=== PATIENT | male | born 1940 | race Caucasian/White ===

== ENCOUNTER 2017-04-05 00:04 | Inpatient (IN) | payer OTHER ==
[~2017-04-05] VITALS: Ht 180.3 cm; Wt 95.9 kg
[2017-04-05 01:14] LABS: HEMATOCRIT 33.8 % (38.0-50.0); MCH 28.5 PG (29.0-34.0); MCHC 32.8 G/DL (30.0-36.0); MCV 86.7 FL (86-99); MEAN PLAT.VOLUME 9.9 uM^3 (9.0-12.4); PLATELET COUNT 171 K/uL (156-360); RBC DIS.WIDTH-CV 13.6 % (11.8-14.6); RBC DIS.WIDTH-SD 42.6 % (39-53); WHITE BLOOD COUNT 4.2 K/uL (4.1-10.2)
[2017-04-05 01:26] LABS: CHLORIDE 102 mEq/L (99-109); POTASSIUM 4.1 mEq/L (3.7-5.4); SODIUM 132 mEq/L (136-147)
[2017-04-05 01:28] LABS: GLUCOSE 276 mg/dL (70-99)
[2017-04-05 01:29] LABS: D-DIMER ELISA 0.72 mg/L FEU (< 0.57); PROTHROMBIN TIME 10.5 (9.2-11.2)
[2017-04-05 01:30] LABS: ANION GAP 7 MEQ/L (2-14); TOTAL BILIRUBIN 0.5 mg/dL (0.0-1.0)
[2017-04-05 01:32] LABS: ALKALINE PHOSPHATASE 97 IU/L (3-129); GFR ESTIMATE (CALCULATED) 48 mL/min/
[2017-04-05 01:33] LABS: UREA NITROGEN (BUN) 21 mg/dL (9-23)
[2017-04-05 01:35] LABS: LIPASE 80 U/L (1.0-51.0)
[2017-04-05 01:36] LABS: TROP-I INTERPRETATION NEGATIVE; TROPONIN-I 0.03 ng/mL (0.0-0.30)
[2017-04-05 06:13] VITALS: BP 159/75
[2017-04-05 07:22] VITALS: BP 137/67
[2017-04-05 07:56] LABS: POINT-OF-CARE METER ID UU13113831
[2017-04-05] MEDS ORDERED: TOPROL XL50 MG PO (08:40)
[2017-04-05] MEDS ORDERED: ROSUVASTATIN CA40 MG PO (08:40)
[2017-04-05] MEDS ORDERED: CELECOXIB100 MG PO (08:40)
[2017-04-05] MEDS ORDERED: GLUCOPHAGE XR750 MG PO (08:40)
[2017-04-05] MEDS ORDERED: CLOPIDOGREL75 MG PO (08:41)
[2017-04-05] MEDS ORDERED: ALLOPURINOL300 MG PO (08:41)
[2017-04-05] MEDS ORDERED: HYDROCHLOROTH12.5 M3 PO (08:41)
[2017-04-05] MEDS ORDERED: LO-DOSE ASPIRIN81 M2 PO (08:42)
[2017-04-05] MEDS ORDERED: LOSARTAN POTAS100 MG PO (08:42)
[2017-04-05] MEDS ORDERED: MAGNESIUM27 MG PO (08:44)
[2017-04-05] MEDS ORDERED: POTASSIUM-9999 MG PO (08:45)
[2017-04-05 09:14] LABS: FASTING STATUS NONFASTING
[2017-04-05 09:45] LABS: Estimated Average Glucose 197 mg/dL (70-123); HEMOGLOBIN A1c (GLYCOHEMOGLOB) 8.5 % HGB (Below 5.7)
[2017-04-05 09:46] LABS: HDL CHOLESTEROL 28 MG/DL (Desirable>=40); LDL CHOLESTEROL 32 mg/dL (Desirable<100); MAGNESIUM 1.5 mg/dl (1.3-2.7); NON-HDL CHOLESTEROL 63 mg/dL (Desirable<160); SAMPLE HEMOLYSIS CHECK 0; SAMPLE ICTERIC CHECK 0; SAMPLE LIPEMIA CHECK 0; TOTAL CHOLESTEROL 91 mg/dL (Desirable<200); TRIGLYCERIDES 157 MG/DL (Normal: <150)
[2017-04-05 09:57] LABS: ANION GAP 9 MEQ/L (2-14); CHLORIDE 101 MEQ/L (99-109); GFR ESTIMATE (CALCULATED) > 59 mL/min/; GLUCOSE 175 mg/dL (70-99); POTASSIUM 3.9 MEQ/L (3.7-5.4); SODIUM 136 MEQ/L (136-147); UREA NITROGEN (BUN) 17 mg/dL (9-23)
[2017-04-05 10:00] LABS: TROP-I INTERPRETATION NEGATIVE; TROPONIN-I 0.19 ng/mL (0.0-0.30)
[2017-04-05 11:21] VITALS: BP 148/77
[2017-04-05 12:00] LABS: POINT-OF-CARE METER ID UU13113831
[2017-04-05 14:16] LABS: TROP-I INTERPRETATION NEGATIVE; TROPONIN-I 0.22 ng/mL (0.0-0.30)
[2017-04-05 15:20] VITALS: BP 151/72
[2017-04-05 16:29] LABS: POINT-OF-CARE METER ID UU14162513
[2017-04-05 19:12] VITALS: BP 170/80
[2017-04-05 21:46] LABS: POINT-OF-CARE METER ID UU14162513
[2017-04-06 00:10] VITALS: BP 131/62
[2017-04-06 04:15] VITALS: BP 134/62
[2017-04-06 06:06] LABS: HEMATOCRIT 31.1 % (38.0-50.0); MCH 28.4 PG (29.0-34.0); MCHC 32.5 G/DL (30.0-36.0); MCV 87.4 FL (86-99); MEAN PLAT.VOLUME 10.3 uM^3 (9.0-12.4); PLATELET COUNT 142 K/uL (156-360); RBC DIS.WIDTH-CV 13.7 % (11.8-14.6); RBC DIS.WIDTH-SD 44.1 % (39-53); RED BLOOD COUNT 3.56 M/uL (4.00-5.50); WHITE BLOOD COUNT 4.3 K/uL (4.1-10.2)
[2017-04-06 07:05] VITALS: BP 157/74
[2017-04-06 07:20] LABS: ALKALINE PHOSPHATASE 85 IU/L (3-129); ANION GAP 7 MEQ/L (2-14); CHLORIDE 106 MEQ/L (99-109); GFR ESTIMATE (CALCULATED) > 59 mL/min/; GLUCOSE 150 mg/dL (70-99); POTASSIUM 3.8 MEQ/L (3.7-5.4); SAMPLE HEMOLYSIS CHECK 0; SAMPLE ICTERIC CHECK 0; SAMPLE LIPEMIA CHECK 0; SODIUM 138 MEQ/L (136-147); TOTAL BILIRUBIN 0.5 MG/DL (0.0-1.0); UREA NITROGEN (BUN) 11 mg/dL (9-23)
== END 2017-04-06 09:22 | disposition short-term general hospital (02) | DRG 313 ==
LOC: EME → EDBD 00:04 → EDOF 05:21 → 5WEST 06:01
PROVIDERS: Emergency Medicine; Hospitalist; Internal Medicine
DX: R07.9 Chest pain, unspecified (principal); N17.9 Acute kidney failure, unspecified; E86.0 Dehydration; E87.1 Hypo-osmolality and hyponatremia; I50.9 Heart failure, unspecified; E11.9 Type 2 diabetes mellitus without complications; E78.5 Hyperlipidemia, unspecified; I25.10 Atherosclerotic heart disease of native coronary artery without angina pectoris; I44.0 Atrioventricular block, first degree; R94.31 Abnormal electrocardiogram [ECG] [EKG]; R00.1 Bradycardia, unspecified; I45.10 Unspecified right bundle-branch block; I25.2 Old myocardial infarction; Z86.73 Personal history of transient ischemic attack (TIA), and cerebral infarction without residual deficits; Z95.1 Presence of aortocoronary bypass graft; Z87.891 Personal history of nicotine dependence
CPT/HCPCS: 71020; 71275; 80048 91; 80053; 80061; 82948; 83036; 83690; 83735; 84484; 85027; 85379; 85610; 85730; 93005; 93306; 99281; 99285; J7030

== ENCOUNTER 2017-04-27 08:25 | Emergency (ER) | payer OTHER ==
[~2017-04-27] VITALS: Ht 180.3 cm; Wt 100.0 kg
[~2017-04-27 08:25] MED LIST: ALLOPURINOL300 MG PO; CELECOXIB100 MG PO; CLOPIDOGREL75 MG PO; GLUCOPHAGE XR750 MG PO; HYDROCHLOROTH12.5 M3 PO; LO-DOSE ASPIRIN81 M2 PO; LOSARTAN POTAS100 MG PO; MAGNESIUM27 MG PO; POTASSIUM-9999 MG PO; ROSUVASTATIN CA40 MG PO; TOPROL XL50 MG PO
[2017-04-27 08:45] LABS: POINT-OF-CARE METER ID UU13113778
[2017-04-27 09:41] LABS: EOSINOPHIL COUNT 0.1 K/uL (0-0.3); HEMATOCRIT 32.2 % (38.0-50.0); IMMATURE GRANULOCYTE (%) 0.2 % (0.0-0.7); INSTRUMENT ABS NEUTROPHIL CT 2.6 K/uL; LYMPHOCYTE COUNT 1.3 K/uL (1.0-2.8); MCH 27.8 PG (29.0-34.0); MCHC 32.6 G/DL (30.0-36.0); MCV 85.2 FL (86-99); MEAN PLAT.VOLUME 10.1 uM^3 (9.0-12.4); MONOCYTE (%) 12.5 % (3-12); MONOCYTE COUNT 0.6 K/uL (0-0.8); NEUTROPHIL (%) 56.7 % (45-76); NEUTROPHIL COUNT 2.6 K/uL (1.8-6.4); PLATELET COUNT 198 K/uL (156-360); RBC DIS.WIDTH-CV 13.7 % (11.8-14.6); RBC DIS.WIDTH-SD 42.5 % (39-53); RED BLOOD COUNT 3.78 M/uL (4.00-5.50); WHITE BLOOD COUNT 4.6 K/uL (4.1-10.2)
[2017-04-27 09:51] LABS: INTER. NORMALIZED RATIO 1.1; PROTHROMBIN TIME 10.8 (9.2-11.2)
[2017-04-27 09:52] LABS: CHLORIDE 103 mEq/L (99-109); SODIUM 137 mEq/L (136-147)
[2017-04-27 09:53] LABS: GLUCOSE 276 mg/dL (70-99)
[2017-04-27 09:55] LABS: ANION GAP 11 MEQ/L (2-14); PTT 28.5 (25-32)
[2017-04-27 09:57] LABS: GFR ESTIMATE (CALCULATED) 52 mL/min/
[2017-04-27 09:58] LABS: UREA NITROGEN (BUN) 20 mg/dL (9-23)
[2017-04-27 10:03] LABS: TROP-I INTERPRETATION NEGATIVE; TROPONIN-I < 0.01 ng/mL (0.0-0.30)
[2017-04-27] MEDS ORDERED: ANTIVERT25 MG PO ×2 (11:10→11:19)
[2017-04-27 11:37] VITALS: BP 135/73
== END 2017-04-27 11:39 | disposition home or self-care (01) ==
LOC: EME 08:25
PROVIDERS: Emergency Medicine
DX: R42 Dizziness and giddiness (principal); I10 Essential (primary) hypertension; E11.9 Type 2 diabetes mellitus without complications; E78.5 Hyperlipidemia, unspecified; I50.9 Heart failure, unspecified; Z95.1 Presence of aortocoronary bypass graft; Z95.5 Presence of coronary angioplasty implant and graft; Z79.82 Long term (current) use of aspirin; Z79.02 Long term (current) use of antithrombotics/antiplatelets; Z86.73 Personal history of transient ischemic attack (TIA), and cerebral infarction without residual deficits; Z85.828 Personal history of other malignant neoplasm of skin; Z87.891 Personal history of nicotine dependence
CPT/HCPCS: 70450; 71010; 80048; 82948; 84484; 85025; 85610; 85730; 93005; 99281; 99285; J1200; J2405; J7030

== ENCOUNTER 2018-02-19 10:03 | Inpatient (IN) | payer OTHER ==
[~2018-02-19] VITALS: Ht 180.3 cm; Wt 93.8 kg
[~2018-02-19 10:03] MED LIST changes: +ANTIVERT25 MG PO; -LOSARTAN POTAS100 MG PO; +LOSARTAN POTASS25 MG PO
[2018-02-19 13:16] LABS: BASOPHIL (%) 0.4 % (0-1); EOSINOPHIL (%) 5.6 % (0-5); EOSINOPHIL COUNT 0.3 K/uL (0-0.3); HEMATOCRIT 33.5 % (38.0-50.0); IMMATURE GRANULOCYTE (%) 0.2 % (0.0-0.7); LYMPHOCYTE COUNT 1.1 K/uL (1.0-2.8); MCH 28.7 PG (29.0-34.0); MCHC 32.8 G/DL (30.0-36.0); MCV 87.5 FL (86-99); MONOCYTE (%) 10.7 % (3-12); MONOCYTE COUNT 0.6 K/uL (0-0.8); NEUTROPHIL (%) 63.1 % (45-76); NEUTROPHIL COUNT 3.5 K/uL (1.8-6.4); PLATELET COUNT 164 K/uL (156-360); RBC DIS.WIDTH-CV 13.9 % (11.8-14.6); RBC DIS.WIDTH-SD 44.5 % (39-53); RED BLOOD COUNT 3.83 M/uL (4.00-5.50); WHITE BLOOD COUNT 5.5 K/uL (4.1-10.2)
[2018-02-19] MEDS ORDERED: RANEXA500 MG PO (13:20)
[2018-02-19] MEDS ORDERED: LOPRESSOR50 MG PO (13:20)
[2018-02-19] MEDS ORDERED: HYDROCHLOROTH12.5 M3 PO (13:21)
[2018-02-19] MEDS ORDERED: GLIMEPIRIDE1 MG PO (13:26)
[2018-02-19 13:27] LABS: CHLORIDE 100 mEq/L (99-109); POTASSIUM 3.7 mEq/L (3.7-5.4); SODIUM 136 mEq/L (136-147)
[2018-02-19 13:29] LABS: GLUCOSE 137 mg/dL (70-99)
[2018-02-19 13:32] LABS: CREATININE 1.3 mg/dL (0.6-1.3); GFR ESTIMATE (CALCULATED) 57 mL/min/ (58.99-99999)
[2018-02-19 13:33] LABS: UREA NITROGEN (BUN) 18 mg/dL (9-23)
[2018-02-19 15:44] VITALS: BP 140/66
[2018-02-19 19:02] LABS: MCV 87.1 FL (86-99)
[2018-02-19 20:08] VITALS: BP 120/54
[2018-02-20] VITALS (7 sets, daily range): BP systolic 100–124; BP diastolic 50–65
[2018-02-20 01:07] LABS: HEMATOCRIT 31.4 % (38.0-50.0); HEMOGLOBIN 10.5 G/DL (12.5-16.6)
[2018-02-20 05:50] LABS: HEMATOCRIT 30.5 % (38.0-50.0); HEMOGLOBIN 9.8 G/DL (12.5-16.6); MCH 27.9 PG (29.0-34.0); MCHC 32.1 G/DL (30.0-36.0); MCV 86.9 FL (86-99); PLATELET COUNT 179 K/uL (156-360); RBC DIS.WIDTH-SD 43.6 % (39-53); RED BLOOD COUNT 3.51 M/uL (4.00-5.50); WHITE BLOOD COUNT 5.3 K/uL (4.1-10.2)
[2018-02-20 06:11] LABS: CHLORIDE 101 MEQ/L (99-109); CREATININE 1.1 MG/DL (0.6-1.3); GFR ESTIMATE (CALCULATED) > 59 mL/min/ (58.99-99999); GLUCOSE 116 mg/dL (70-99); POTASSIUM 3.8 MEQ/L (3.7-5.4); SODIUM 136 MEQ/L (136-147); UREA NITROGEN (BUN) 14 mg/dL (9-23)
[2018-02-20 21:48] LABS: HEMATOCRIT 30.8 % (38.0-50.0); HEMOGLOBIN 9.9 G/DL (12.5-16.6); MCV 88.5 FL (86-99)
[2018-02-21 04:09] VITALS: BP 102/55
[2018-02-21 07:59] VITALS: BP 132/60
[2018-02-21 11:20] VITALS: BP 99/53
[2018-02-21] MEDS ORDERED: LOPRESSOR25 MG PO (12:05)
[2018-02-21] MEDS ORDERED: TYLENOL REGULA325 MG PO (12:11)
== END 2018-02-21 15:18 | disposition home health service (06) | DRG 604 ==
LOC: EME 10:03 → EDOF 13:33 → ENRESERV 13:36 → EDOF 14:26 → 3EAST 15:24
PROVIDERS: Emergency Medicine; Physician Assistant; Student in an Organized Health Care Education/Training Program
DX: S30.0XXA Contusion of lower back and pelvis, initial encounter (principal); S72.115A Nondisplaced fracture of greater trochanter of left femur, initial encounter for closed fracture; T84.061A Wear of articular bearing surface of internal prosthetic left hip joint, initial encounter; Y79.2 Prosthetic and other implants, materials and accessory orthopedic devices associated with adverse incidents; W01.0XXA Fall on same level from slipping, tripping and stumbling without subsequent striking against object, initial encounter; I10 Essential (primary) hypertension; I25.10 Atherosclerotic heart disease of native coronary artery without angina pectoris; E11.9 Type 2 diabetes mellitus without complications; E78.5 Hyperlipidemia, unspecified; Z96.643 Presence of artificial hip joint, bilateral; Y92.009 Unspecified place in unspecified non-institutional (private) residence as the place of occurrence of the external cause; I25.2 Old myocardial infarction; Z95.1 Presence of aortocoronary bypass graft; Z95.5 Presence of coronary angioplasty implant and graft; Z79.82 Long term (current) use of aspirin; Z79.84 Long term (current) use of oral hypoglycemic drugs; Z79.02 Long term (current) use of antithrombotics/antiplatelets; Z85.828 Personal history of other malignant neoplasm of skin; Z86.73 Personal history of transient ischemic attack (TIA), and cerebral infarction without residual deficits; Z87.891 Personal history of nicotine dependence
CPT/HCPCS: 72191; 72192; 73090; 73502; 73552; 80048; 82948; 85014; 85018; 85025; 85027; 99281; 99284; J7030